=== PATIENT | female | born 1955 | race Caucasian/White ===

== ENCOUNTER 2018-08-09 15:34 | Outpatient (CLI) | payer BC ==
--- NOTE | 2018-09-08 11:39 | MMO ---
Bilateral MAMMO Bilat Screen DDI+BAYLEE. CLINICAL HISTORY: Patient is 62 years old and is seen for screening. The patient has no family history of breast cancer. The patient has no personal history of cancer. The patient has a history of left Stereotatic Biopsy at age 48 - benign. VIEWS: The views performed were: bilateral craniocaudal with tomosynthesis and bilateral mediolateral oblique with tomosynthesis. MAMMOGRAM FINDINGS: There are scattered fibroglandular densities. There is an area of architectural distortion seen in the outer region of the left breast. In the right breast, there are no suspicious masses, calcifications or areas of architectural distortion. IMPRESSION: AREA OF ARCHITECTURAL DISTORTION IN THE LEFT BREAST REQUIRES ADDITIONAL EVALUATION. RECOMMEND DIAGNOSTIC MAMMOGRAM. ULTRASOUND MAY ALSO PROVE USEFUL AT RECALL. THE RESULTS OF THIS EXAM WERE SENT TO THE PATIENT. ACR BI-RADS Category 0 - Incomplete: Need additional imaging evaluation. [facility] will notify the patient of the need for additional imaging services. MAMMOGRAPHY NOTE: 1. A negative mammogram report should not delay a biopsy if a dominant of clinically suspicious mass is present. 2. Approximately 10% to 15% of breast cancers are not detected by mammography. 3. Adenosis and dense breasts may obscure an underlying neoplasm.
== END 2018-08-09 15:35 | disposition home or self-care (01) ==
LOC: BICMAMMO 15:34
PROVIDERS: ATTEND Family Medicine
DX: Z12.31 Encounter for screening mammogram for malignant neoplasm of breast (principal); Q83.9 Congenital malformation of breast, unspecified
CPT/HCPCS: 77063; 77067

== ENCOUNTER 2018-09-14 12:41 | Outpatient (CLI) | payer BC ==
--- NOTE | 2018-09-14 14:53 | MMO ---
Left Breast MAMMO Unilat Diag DDI LT+BAYLEE. CLINICAL HISTORY: Patient is 62 years old and is seen for diagnostic exam. The patient has no family history of breast cancer. The patient has no personal history of cancer. The patient has a history of left Stereotatic Biopsy at age 48 - benign. VIEWS: The views performed were: . FILMS COMPARED: The present examination has been compared to prior imaging studies performed at [facility] on 08/09/2018 and 09/14/2018. MAMMOGRAM FINDINGS: There are scattered fibroglandular densities. Spiculated density in the left breast at 2:00 position persists on addl views and corresponds to a 5-6mm shadowing mass on US. IMPRESSION: AN ULTRASOUND-GUIDED BREAST BIOPSY IS RECOMMENDED. THE RESULTS OF THIS EXAM WERE SENT TO THE PATIENT. ACR BI-RADS Category 4 - Suspicious abnormality - biopsy should be considered MAMMOGRAPHY NOTE: 1. A negative mammogram report should not delay a biopsy if a dominant of clinically suspicious mass is present. 2. Approximately 10% to 15% of breast cancers are not detected by mammography. 3. Adenosis and dense breasts may obscure an underlying neoplasm.
--- NOTE | 2018-09-14 16:44 | ULT ---
LEFT BREAST ULTRASOUND: 09/14/18 HISTORY: Abnormal mammogram. FINDINGS: Correlation is made with mammograms of today and 08/09/18. Sonographic evaluation of the left upper outer breast demonstrates a small shadowing lesion 5 cm from the nipple at the 2 o'clock position corresponding to the mammographic findings. This measures abou t 5-6 mm. IMPRESSION: BI-RADS 4: Suspicious Abnormality - Biopsy Should Be Considered Further evaluation with ultrasound guided biopsy is recommended. Discussed in person with the patient at 2:45 p.m. POS: OFF
== END 2018-09-14 12:42 | disposition home or self-care (01) ==
LOC: BICMAMMO 12:41
PROVIDERS: ATTEND Family Medicine
DX: R92.2 Inconclusive mammogram (principal)
CPT/HCPCS: G0279

== ENCOUNTER → 2018-09-22 | Day surgery (SDC) | payer BC ==
--- NOTE | 2018-09-22 16:03 | MMO ---
Left Breast MAMMO Unilat Diag DDI LT. CLINICAL HISTORY: Patient is 62 years old and is seen for diagnostic exam. The patient has no family history of breast cancer. The patient has no personal history of cancer. The patient has a history of left Ultrasound Guided Core Biopsy in September, and left Stereotatic Biopsy at age 48 - benign. VIEWS: The views performed were: left craniocaudal and left mediolateral oblique. FILMS COMPARED: The present examination has been compared to prior imaging studies performed at [facility] on 05/23/2006, and at [facility] on 08/09/2018 and 09/14/2018. MAMMOGRAM FINDINGS: There are scattered fibroglandular densities. There is a new biopsy clip seen in the upper-outer region of the left breast. IMPRESSION: NEW BIOPSY CLIP IN THE LEFT BREAST IS CONFIRMED UTILIZING POST PROCEDURE MAMMOGRAM. THE RESULTS OF THIS EXAM WERE SENT TO THE PATIENT. MAMMOGRAPHY NOTE: 1. A negative mammogram report should not delay a biopsy if a dominant of clinically suspicious mass is present. 2. Approximately 10% to 15% of breast cancers are not detected by mammography. 3. Adenosis and dense breasts may obscure an underlying neoplasm.
--- NOTE | 2018-09-22 16:07 | ULT ---
Ultrasound-guided left breast biopsy CLINICAL HISTORY: Left breast mass, upper outer quadrant PROCEDURE: Informed consent was obtained. Patient was escorted to the procedural suite and placed in supine posi tion. The left breast was prepped and draped in standard sterile fashion and topical anesthesia with buffered 1% lidocaine was performed. A small skin incision was made through which a 14-gauge bio psy needle was advanced, and subsequently, 5 core specimens of the mass were acquired in place into a sealed formalin container. Biopsy needle was removed. Biopsy marking clip was advanced to and deplo aarond at site of biopsy. There were no procedural complications. She tolerated procedure well. Patient subsequent was transported to mammography to undergo clip place ment views. IMPRESSION: Technically successful ultrasound-guided left breast biopsy. Pathology results are pending, and the patient will be notified when they are received. Transcribed Date/Time: 09/22/2018 4:35 PM
== END ==
LOC: BICULT 12:35
PROVIDERS: ATTEND Family Medicine
PROC: 0HBU3ZX Excision of Left Breast, Percutaneous Approach, Diagnostic (ICD-10-PCS; principal; 2018-09-22)
DX: C50.212 Malignant neoplasm of upper-inner quadrant of left female breast (principal)
CPT/HCPCS: 19083; 88305; 88341; 88342

== ENCOUNTER 2018-10-03 06:48 | Day surgery (SDC) | payer BC ==
[2018-09-29 08:47] VITALS: BMI 39.9
--- NOTE | 2018-10-03 09:54 | NM ---
EXAM: NM Lymphoscintigraphy left breast PROVIDED CLINICAL HISTORY: History COMPARISON: None FINDINGS: Approximately 400 uCi of technetium 99m sulfur colloid was administered in a periareolar location in 4 separate aliquots subcutaneously and intradermally in the left breast. Anterior and lateral images were obtained after injection. There is a single focus of increased uptake seen overlying the left axilla likely corresponding to a sentinel lymph node. IMPRESSION: Single focus of activity overlying the left axilla likely corresponding to sentinel lymph node. Gabriella andrea was transported to surgery for further care.
[2018-10-03] MEDS ORDERED: Ketorolac Tromethamine 30 MG/ML VIAL ONE (10:07)
[2018-10-03] MEDS ORDERED: Isosulfan Blue 50 MG/5 ML VIAL ONE (10:08)
[2018-10-03] MEDS ORDERED: Bupivacaine/Epinephrine 0.25% 30 ML VIAL ONE ×2 (10:08→12:04)
[2018-10-03] MEDS ORDERED: Midazolam HCl 2 mg/2 ml Vial ONE (10:48)
[2018-10-03] MEDS ORDERED: Fentanyl 100 MCG/2 ML VIAL ONE (10:58)
--- NOTE | 2018-10-03 12:38 | ULT ---
LIMITED ULTRASOUND LEFT BREAST: 10/03/18 HISTORY: Patient with left breast mass 2 o'clock position post biopsy and biopsy marker clip placement. Needle and wire localization of the mass was requested. COMPARISON: Ultrasound examination on 09/14/18. FINDINGS/IMPRESSION: Imaging of the left breast at the 2 o'clock position does not redemonstrate the previously noted irre gular mass with angulated margins at the 2 o'clock position. There is suggested area of architectura l distortion in this region, but the mass cannot be reliably visualized for needle and wire localizat ion. As a result, the patient was transported to Mammography for a mammographically guided needle and wire localization of the biopsy marker clip. Please see that study for further details. POS: JONATHON
[2018-10-03] MEDS ORDERED: PROPOFOL 200 MG/20 ML VIAL ONE (14:27)
[2018-10-03] MEDS ORDERED: Lidocaine 1% PF 5 ML VIAL ONE (14:27)
[2018-10-03] MEDS ORDERED: Metoclopramide HCl 10 MG/2 ML VIAL ONE (14:27)
[2018-10-03] MEDS ORDERED: Dexamethasone 20 MG/5 ML VIAL ONE (14:27)
[2018-10-03] MEDS ORDERED: Rocuronium Bromide 10 MG/ML (10ML VIAL) ONE (14:27)
[2018-10-03] MEDS ORDERED: Glycopyrrolate 0.2 MG/ML 5 ML SYRINGE ONE (14:27)
[2018-10-03] MEDS ORDERED: Ondansetron PF 4 MG/2 ML Vial ONE (14:27)
--- NOTE | 2018-10-03 18:49 | MMO ---
NEEDLE AND WIRE LOCALIZATION LEFT BREAST BIOPSY MARKER CLIP AND AREA OF ARCHITECTURAL DISTORTION 10/03/18 TECHNIQUE: After informed consent was obtained, limited ultrasound of the left breast was performed. However, th e previously seen irregular mass noted on prior ultrasound exam on 09/14/18 is not well visualized on the current ultrasound exam. As the result, needle and wire localization was performed by mammographi c guidance. A lateral medial projection of the left breast was performed with grid localizer in place . The biopsy marker clip in area of distortion left breast were marked, and the area was meticulousl y prepped in the usual fashion. Skin and subcutaneous tissues were infiltrated with buffered 1% lidoc deirdre for local anesthesia. A 7.5 cm [place] localization needle was advanced and a CC projection was obtained demonstrating that t he needle traverses the region of the area of suggested architectural distortion and the biopsy briseyda er clip. Architectural distortion is slightly more lateral compared to the biopsy marker clip. The wi re was deployed and final imaging was performed. Dry sterile dressing was placed. Patient tolerated the procedure well without immediate complication. IMPRESSION: Technically successful needle and wire localization of left breast biopsy marker clip and suggested a riaz of architectural distortion within the outer left breast. POS: [facility]
--- NOTE | 2018-10-03 18:51 | MMO ---
LEFT BREAST SPECIMEN MAMMOGRAM: 10/03/18 HISTORY: Mass left breast. Patient is post needle and wire localization of biopsy maker clip and area of archi tectural distortion. FINDINGS/IMPRESSION: Single specimen mammogram is submitted for interpretation. Specimen contains the [place] localization wire as well as biopsy marker clip. In addition, there is what appears to be a spiculated mass within a portion of the specimen likely corresponding to the area of distortion in the left breast just lat eral to the biopsy marker clip. These findings were relayed to Dr. Huston in the Operating Room by Neema Salgado. POS: JONATHON
--- NOTE | 2018-10-04 08:46 | OP ---
DATE OF PROCEDURE: 10/03/2018 PREOPERATIVE DIAGNOSIS: Left breast cancer. POSTOPERATIVE DIAGNOSIS: Left breast cancer. PROCEDURES PERFORMED: Left breast needle localized lumpectomy, sentinel lymph node biopsy. ANESTHESIA: General endotracheal. INDICATIONS: The patient is a 62-year-old white female. She has biopsy-proven left breast cancer. After discussing the options with her, she was taken to the operating room at this time for breast conservation surgery. Prior to coming to the operating room, she had needle localization performed mammographically by Dr. Garcia and I reviewed these x-rays with him. She also had lymphoscintigraphy performed revealing sentinel lymph nodes within the left axilla. DESCRIPTION OF OPERATION: Informed consent was obtained. The patient was taken to the operating room, where general endotracheal anesthesia was obtained with the patient in the supine position. Left breast was infiltrated with 3 mL of Lymphazurin in the periareolar subdermal tissue and massaged for 5 minutes. Left breast and axilla were then prepped with ChloraPrep and draped in sterile fashion. Attention was turned first to the axilla. Local anesthetic was infiltrated using 0.25% Marcaine with epinephrine and a low transverse axillary incision was created. Dissection was carried through skin and subcutaneous tissue. Superficial axillary fascia was incised. The Neoprobe was utilized to identify areas of maximum radio intensity. There was one single dominant lymph node that had bright blue lymphatic drainage into this as well as high counts. Ex vivo, the counts, were in excess of 250. This node was removed by clamping and dividing all investing tissue. I was then able to identify second lymph node with much lower counts (only in the neighborhood of about 25). There were no other areas of any radioactivity higher than 5 or 6 within the axilla. The second lymph node was removed in a similar fashion to the first and both were passed off the field for permanent evaluation. Meticulous hemostasis was obtained within the wound. The superficial fascia was closed with a running suture of 3-0 Vicryl. Skin edges approximated with 4-0 Monocryl subcuticular suture. Dermabond placed externally. Additional local anesthetic was infiltrated during the course of closure. Attention was turned to the left breast. The needle localization had been performed in a lateral to medial fashion. It entered the breast obliquely in an ascending fashion. I identified both the clip and an area of architectural abnormality relative to the needle. I then performed intraoperative ultrasound to identify the area of architectural irregularity that I could see in my office. This appeared to be consistent with area of irregularity that could be seen on mammography. This was marked relative to the wire and the clip. Additional local anesthetic was infiltrated and an incision was created from the needle entry site medially, in an ascending fashion. Dissection was carried through skin and subcutaneous tissue. Flaps were raised superiorly, medially, and inferiorly. Dissection was then carried out along the lateral aspect of the localizing needle and carried deeply into the breast. Then, utilizing the flaps that already been dissected, the specimen was widely dissected around the wire. Specimen was removed intact. Sutures were placed for orientation and the specimen was submitted for specimen mammography. This revealed the clip and area of architectural irregularity were present within the specimen. Specimen was submitted to pathology. Meticulous hemostasis was obtained. The wound was closed in layers with 3-0 and 4-0 Monocryl. Additional local anesthetic was infiltrated into the wound during closure. There were no complications. The patient tolerated the procedure well and was taken to recovery room in stable condition. Job ID: [id number]
== END 2018-10-03 14:45 | disposition home or self-care (01) ==
LOC: SDC 06:48
PROVIDERS: ATTEND Specialist
PROC: 0HBU0ZZ Excision of Left Breast, Open Approach (ICD-10-PCS; principal; 2018-10-03)
PROC: 07B60ZX Excision of Left Axillary Lymphatic, Open Approach, Diagnostic (ICD-10-PCS; principal; 2018-10-03)
DX: C50.412 Malignant neoplasm of upper-outer quadrant of left female breast (principal); I10 Essential (primary) hypertension; M19.90 Unspecified osteoarthritis, unspecified site; J30.9 Allergic rhinitis, unspecified; Z17.0 Estrogen receptor positive status [ER+]; Z79.899 Other long term (current) drug therapy; Z88.2 Allergy status to sulfonamides; Z88.8 Allergy status to other drugs, medicaments and biological substances; Z97.4 Presence of external hearing-aid
CPT/HCPCS: 19281; 76098; 78195; 88307; 88341; 88342; A9541; J0131; J0690; J1100; J1885; J2001; J2250; J2405; J2704; J2765; J3010; Q9968

== ENCOUNTER 2019-01-19 13:07 | Outpatient (CLI) | payer BC ==
--- NOTE | 2019-01-19 13:57 | BD ---
DEXA BONE DENISITY EXAM: HISTORY: A 63-year-old postmenopausal female for screening. FINDINGS: Lumbar Spine: BMD (g/cm2) L1 1.313 T-Score: 2.9 L2 1.290 T-Score: 2.4 L3 1.417 T-Score: 3.0 L4 1.403 T-Score: 3.1 L1-L4 1.358 T-Score: 2.8 Femoral Neck: 0.787 T-Score: -0.6 Total Femur: 1.029 T-Score: 0.7 Impression: Normal bone mineral density. POS: [facility]
== END 2019-01-19 13:08 | disposition home or self-care (01) ==
LOC: BICMAMMO 13:07
PROVIDERS: ATTEND Internal Medicine Hematology & Oncology
DX: Z13.820 Encounter for screening for osteoporosis (principal); C50.919 Malignant neoplasm of unspecified site of unspecified female breast; T38.6X5A Adverse effect of antigonadotrophins, antiestrogens, antiandrogens, not elsewhere classified, initial encounter
CPT/HCPCS: 77080

== ENCOUNTER 2019-09-24 08:17 | Outpatient (CLI) | payer BC ==
--- NOTE | 2019-09-24 08:47 | MMO ---
Bilateral MAMMO Bilat Diag DDI+BAYLEE. CLINICAL HISTORY: Patient is 63 years old and is seen for diagnostic exam. The patient has no family history of breast cancer. The patient has a history of lumpectomy procedure revealed invasive ductal left breast carcinoma in September,. The patient has a history of left Ultrasound Guided Core Biopsy in September, - malignant and left Stereotatic Biopsy at age 48 - benign. VIEWS: The views performed were: bilateral craniocaudal with tomosynthesis; bilateral mediolateral oblique with tomosynthesis; and bilateral mediolateral with tomosynthesis. FILMS COMPARED: The present examination has been compared to prior imaging studies performed at [facility] on 09/14/2018, 09/22/2018 and 10/03/2018. This study has been interpreted with the assistance of computer-aided detection. MAMMOGRAM FINDINGS: There are scattered fibroglandular densities. There are post operative changes seen in the upper-outer region of the left breast. There are no suspicious masses, suspicious calcifications, or new areas of architectural distortion. IMPRESSION: THERE IS NO MAMMOGRAPHIC EVIDENCE OF MALIGNANCY. A ROUTINE FOLLOW-UP MAMMOGRAM IN 1 YEAR IS RECOMMENDED. THE RESULTS OF THIS EXAM WERE SENT TO THE PATIENT. ACR BI-RADS Category 2 - Benign finding MAMMOGRAPHY NOTE: 1. A negative mammogram report should not delay a biopsy if a dominant of clinically suspicious mass is present. 2. Approximately 10% to 15% of breast cancers are not detected by mammography. 3. Adenosis and dense breasts may obscure an underlying neoplasm. Reported by: REAGAN VARGAS MD Electonically Signed: [id number]
== END 2019-09-24 08:18 | disposition home or self-care (01) ==
LOC: BICMAMMO 08:17
PROVIDERS: ATTEND Specialist
DX: Z08 Encounter for follow-up examination after completed treatment for malignant neoplasm (principal); Z85.3 Personal history of malignant neoplasm of breast
CPT/HCPCS: 77066; G0279

== ENCOUNTER 2020-01-28 07:43 | Outpatient (CLI) | payer BC ==
--- NOTE | 2020-01-28 09:10 | BD ---
EXAM: DEXA bone density examination HISTORY: 64-year-old postmenopausal female for screening COMPARISON: None FINDINGS: L1--bone mineral density 1.190 g/sq cm; T score 1.8 L2--bone mineral density 1.304 g/sq cm; T score 2.5 L3--bone mineral density 1.395 g/sq cm; T score 2.8 L4--bone mineral density 1.509 g/sq cm; T score 4.1 Total L1-L4--bone mineral density 1.362 g/sq cm; T score 2.9 Left femoral neck--bone mineral density0.703; T score -1.3 Total proximal left femur--bone mineral density 1.106; T score 1.3 WHO classification: Osteopenia 10 year fracture risk Major osteoporotic fracture: 8.4% Hip fracture: 0.8% IMPRESSION: Osteopenia with elevated fracture risk as above.
== END 2020-01-28 07:44 | disposition home or self-care (01) ==
LOC: BICMAMMO 07:43
PROVIDERS: ATTEND Internal Medicine Hematology & Oncology
DX: Z13.820 Encounter for screening for osteoporosis (principal); N95.8 Other specified menopausal and perimenopausal disorders; M85.852 Other specified disorders of bone density and structure, left thigh
CPT/HCPCS: 77080

== ENCOUNTER 2020-09-25 09:20 | Outpatient (CLI) | payer MEDICARE | END 2020-09-25 09:21 | disposition home or self-care (01) | LOC: BICMAMMO 09:20 | PROVIDERS: ATTEND Specialist | DX: Z08 Encounter for follow-up examination after completed treatment for malignant neoplasm (principal); Z85.3 Personal history of malignant neoplasm of breast | CPT/HCPCS: 77066; G0279 ==

== ENCOUNTER 2021-03-09 08:17 | Outpatient (CLI) | payer MEDICARE | END 2021-03-09 08:18 | disposition home or self-care (01) | LOC: BICMAMMO 08:17 | PROVIDERS: ATTEND Internal Medicine Hematology & Oncology | DX: M85.852 Other specified disorders of bone density and structure, left thigh (principal) | CPT/HCPCS: 77080 ==

== ENCOUNTER 2021-09-11 05:30 | Emergency (ER) | payer MEDICARE ==
[2021-09-11] MEDS ORDERED: Ondansetron PF 4 MG/2 ML Vial ONE (06:11)
[2021-09-11] MEDS ORDERED: Morphine 4 MG/ML VIAL ONE (06:11)
[2021-09-11 06:23] LABS: #Basophils 0.1 thou/uL (0.0-0.2); #Eosinphils 0.1 thou/uL (0.0-0.7); #Lymphocytes 1.5 thou/uL (1.20-3.40); #Monocytes 0.8 thou/uL (0.11-0.59); #Neutrophils 10.1 thou/uL (1.40-6.50); %Basophils 0.4 % (0.0-1.0); %Eosinophils 0.5 % (0.0-10.0); %Lymphocytes 12.1 % (21.0-51.0); Hemoglobin 14.4 g/dL (12.0-16.0); Mean Corpuscular HGB CONC 31.2 g/dL (32.0-36.0); Mean Corpuscular Volume 86.4 fL (78.0-98.0); Mean Platelet Volume 6.7 fL (7.4-10.4); Platelet Count 321 thou/uL (130-400); RBC Distribution Width 13.7 % (11.5-14.5); Red Blood Cell (RBC) Count 5.34 mill/uL (4.20-5.40); White Blood Cell (WBC) Count 12.5 thou/uL (4.8-10.8)
[2021-09-11 06:47] LABS: Bacteria/HPF None Seen HPF (None Seen); Bilirubin Negative (Negative); Blood, Urine 2+ (Negative); Clarity Clear (Clear); Glucose, Urine (Dipstick) Normal (Negative); Ketone, Urine 40 mg/dL (Negative); Leukocyte 250 Leu/uL (Negative); Nitrite Negative (Negative); Protein, Urine (Dipstick) 30 mg/dL (Neg-Trace); Specific Gravity, Urine 1.028 (1.002-1.036); Squamous Epithelial 0-3 HPF (0-3); Urobilinogen Normal mg/dL (Less than 2); pH, Urine 5.5 (5.0-9.0)
[2021-09-11 07:26] LABS: ALT (SGPT) 9 U/L (8-55); AST (SGOT) 9 U/L (5-34); Alkaline Phosphatase 95 U/L (40-110); Anion Gap 16 mmol/L (10-20); BUN (Urea Nitrogen) 22 mg/dL (9.8-20.1); Bilirubin, Total 0.4 mg/dL (0.2-1.2); Calc. Creatinine Clearance 0 mL/min (70-130); Calcium 9.6 mg/dL (7.8-10.44); Carbon Dioxide 22 mmol/L (23-31); Chloride 100 mmol/L (98-107); Globulin 3.9 g/dL (2.4-3.5); Glucose 85 mg/dL (80-115); Lipase 25 U/L (8-78); Potassium 3.8 mmol/L (3.5-5.1); Protein, Total 7.9 g/dL (5.8-8.1); Sodium 134 mmol/L (136-145)
[2021-09-11] MEDS ORDERED: Iopamidol-370 76% 500 ML 1 ML ONE (15:58)
== END 2021-09-11 08:49 | disposition home or self-care (01) ==
LOC: ERS 05:30
DX: N39.0 Urinary tract infection, site not specified (principal); N83.9 Noninflammatory disorder of ovary, fallopian tube and broad ligament, unspecified; R93.89 Abnormal findings on diagnostic imaging of other specified body structures; I10 Essential (primary) hypertension; Z85.3 Personal history of malignant neoplasm of breast; Z79.899 Other long term (current) drug therapy
CPT/HCPCS: 36415; 74177; 80053; 81003; 81015; 83690; 85025; 93005; 96374; 96375; J2270; J2405

== ENCOUNTER 2021-10-05 08:37 | Outpatient (CLI) | payer MEDICARE | END 2021-10-05 08:38 | disposition home or self-care (01) | LOC: BICMAMMO 08:37 | PROVIDERS: ATTEND Specialist | DX: Z12.31 Encounter for screening mammogram for malignant neoplasm of breast (principal); Z85.41 Personal history of malignant neoplasm of cervix uteri; Z85.3 Personal history of malignant neoplasm of breast; Z91.89 Other specified personal risk factors, not elsewhere classified | CPT/HCPCS: 77063; 77067 ==

== ENCOUNTER 2021-11-30 12:23 | Outpatient (CLI) | payer MEDICARE | END 2021-11-30 12:24 | disposition home or self-care (01) | LOC: LABBT 12:23 | PROVIDERS: ATTEND Specialist | DX: Z20.822 Contact with and (suspected) exposure to COVID-19 (principal) | CPT/HCPCS: 87811 ==

== ENCOUNTER 2021-12-03 07:35 | Day surgery (SDC) | payer MEDICARE ==
[2021-12-02 09:17] VITALS: BMI 38.7
[2021-12-03] MEDS ORDERED: Acetaminophen 500 MG TAB ONE (08:05)
[2021-12-03] MEDS ORDERED: Ketorolac Tromethamine 30 MG/ML VIAL ONE (08:05)
[2021-12-03] MEDS ORDERED: Lidocaine 1% PF 5 ML VIAL ONE ×2 (11:41→12:07)
[2021-12-03] MEDS ORDERED: Bupivacaine/Epinephrine 0.25% 30 ML VIAL ONE (11:42)
[2021-12-03] MEDS ORDERED: Dexmedetomidine 200 MCG/2 ML VIAL ONE (11:47)
[2021-12-03] MEDS ORDERED: fentaNYL Citrate/PF 100 MCG/2 ML SYRINGE ONE (11:47)
[2021-12-03] MEDS ORDERED: Midazolam HCl 2 mg/2 ml Vial ONE (11:47)
[2021-12-03] MEDS ORDERED: Propofol 500 MG/50 ML VIAL ONE (11:52)
[2021-12-03] MEDS ORDERED: CEFAZOLIN 2 GM VIAL ONE (11:54)
[2021-12-03] MEDS ORDERED: Sodium Chloride 0.9% 100 ML ONE (11:54)
== END 2021-12-03 13:43 | disposition home or self-care (01) ==
LOC: SDC 07:35
PROVIDERS: ATTEND Specialist
PROC: 0JH60WZ Insertion of Totally Implantable Vascular Access Device into Chest Subcutaneous Tissue and Fascia, Open Approach (ICD-10-PCS; principal; 2021-12-03)
PROC: 02HV33Z Insertion of Infusion Device into Superior Vena Cava, Percutaneous Approach (ICD-10-PCS; 2021-12-03)
DX: C54.1 Malignant neoplasm of endometrium (principal); E66.01 Morbid (severe) obesity due to excess calories; Z68.38 Body mass index [BMI] 38.0-38.9, adult; Z85.3 Personal history of malignant neoplasm of breast; Z79.811 Long term (current) use of aromatase inhibitors; Z79.899 Other long term (current) drug therapy; Z88.2 Allergy status to sulfonamides; Z88.8 Allergy status to other drugs, medicaments and biological substances
CPT/HCPCS: 36561; 71045; C1788; J0690; J1642; J1885; J2250; J2704; J3490

== ENCOUNTER 2022-05-06 08:16 | Outpatient (CLI) | payer MEDICARE ==
[2022-05-06] MEDS ORDERED: Iopamidol-370 76% 500 ML 1 ML ONE (15:03)
== END 2022-05-06 08:17 | disposition home or self-care (01) ==
LOC: BICCT 08:16
PROVIDERS: ATTEND Internal Medicine Hematology & Oncology
DX: C53.8 Malignant neoplasm of overlapping sites of cervix uteri (principal); N20.0 Calculus of kidney; Z98.890 Other specified postprocedural states
CPT/HCPCS: 74177; 82565

== ENCOUNTER 2022-05-14 08:37 | Outpatient (CLI) | payer MEDICARE | END 2022-05-14 08:38 | disposition home or self-care (01) | LOC: BICMAMMO 08:37 | PROVIDERS: ATTEND Internal Medicine Hematology & Oncology | DX: M85.852 Other specified disorders of bone density and structure, left thigh (principal); C50.412 Malignant neoplasm of upper-outer quadrant of left female breast | CPT/HCPCS: 77080 ==

== ENCOUNTER 2022-12-14 08:37 | Outpatient (CLI) | payer MEDICARE ==
[2022-12-14] MEDS ORDERED: Iopamidol-370 76% 500 ML MDV (1 ML CHARGE) ONE (09:19)
== END 2022-12-14 08:38 | disposition home or self-care (01) ==
LOC: BICCT 08:37
PROVIDERS: ATTEND Internal Medicine Hematology & Oncology
DX: C53.8 Malignant neoplasm of overlapping sites of cervix uteri (principal); C50.412 Malignant neoplasm of upper-outer quadrant of left female breast
CPT/HCPCS: 74177; 82565; Q9967

== ENCOUNTER 2023-05-28 13:55 | Emergency (ER) | payer MEDICARE ==
[2023-05-28] MEDS ORDERED: Ketorolac Tromethamine 30 MG (1 mL) VIAL ONE (14:10)
[2023-05-28] MEDS ORDERED: Ondansetron PF 4 MG/2 ML Vial ONE (14:11)
[2023-05-28] MEDS ORDERED: Morphine 2 MG/ML VIAL ONE (14:11)
[2023-05-28 15:02] LABS: Bacteria/HPF None Seen HPF (None Seen); Bilirubin Negative (Negative); Blood, Urine 1+ (Negative); CAUTI Indications for Culture Pelvic or flank pain; Clarity Clear (Clear); Glucose, Urine (Dipstick) Normal (Negative); Ketone, Urine Negative (Negative); Leukocyte Negative Leu/uL (Negative); Nitrite Negative (Negative); Protein, Urine (Dipstick) 10 mg/dL (Neg-Trace); Specific Gravity, Urine 1.026 (1.002-1.036); Squamous Epithelial 0-3 HPF (0-3); Urobilinogen Normal mg/dL (Less than 2); WBC/HPF 0-3 HPF (0-3)
[2023-05-28 15:04] LABS: Urine Culture Reflex No No
[2023-05-28 15:37] LABS: #Monocytes 0.3 thou/uL (0.11-0.59); #Neutrophils 9.8 thou/uL (1.40-6.50); %Basophils 0.3 % (0.0-1.0); %Eosinophils 0.2 % (0.0-10.0); %Lymphocytes 10.5 % (21.0-51.0); %Neutrophils 85.6 % (42.0-75.0); Hematocrit 45.4 % (36.0-47.0); Hemoglobin 13.8 g/dL (12.0-16.0); Mean Corpuscular HGB CONC 30.4 g/dL (32.0-36.0); Mean Corpuscular Volume 88.7 fl (78.0-98.0); Mean Platelet Volume 9.1 fL (7.4-10.4); Platelet Count 249 10x3/uL (130-400); RBC Distribution Width 15.1 % (11.5-14.5); Red Blood Cell (RBC) Count 5.12 mill/uL (4.20-5.40); White Blood Cell (WBC) Count 11.4 10x3/uL (4.8-10.8)
[2023-05-28 15:58] LABS: ALT (SGPT) 13 U/L (8-55); AST (SGOT) 13 U/L (5-34); Albumin 4.2 g/dL (3.4-4.8); Alkaline Phosphatase 112 U/L (40-110); Anion Gap 15 mmol/L (10-20); BUN (Urea Nitrogen) 23 mg/dL (9.8-20.1); Bilirubin, Total 0.2 mg/dL (0.2-1.2); Calc. Creatinine Clearance 0 mL/min (70-130); Calcium 9.3 mg/dL (7.8-10.44); Carbon Dioxide 19 mmol/L (23-31); Chloride 106 mmol/L (98-107); Estimated GFR 66; Globulin 3.7 g/dL (2.4-3.5); Glucose 110 mg/dL (80-115); Lipase 37 U/L (8-78); Potassium 4.2 mmol/L (3.5-5.1); Protein, Total 7.9 g/dL (5.8-8.1); Sodium 136 mmol/L (136-145)
== END 2023-05-28 16:39 | disposition home or self-care (01) ==
LOC: ERS 13:55
DX: N13.2 Hydronephrosis with renal and ureteral calculous obstruction (principal); I10 Essential (primary) hypertension
CPT/HCPCS: 36415; 74176; 80053; 81001; 83690; 85025; 96361; 96374; 96375; J1885; J2272; J2405

== ENCOUNTER 2023-05-29 17:11 | Emergency (ER) | payer MEDICARE ==
[2023-05-29] MEDS ORDERED: Ondansetron PF 4 MG/2 ML Vial ONE (17:55)
[2023-05-29] MEDS ORDERED: Ketorolac Tromethamine 30 MG (1 mL) VIAL ONE (17:55)
[2023-05-29 18:06] LABS: #Monocytes 0.6 thou/uL (0.11-0.59); #Neutrophils 10.1 thou/uL (1.40-6.50); %Basophils 0.3 % (0.0-1.0); %Eosinophils 0.1 % (0.0-10.0); %Lymphocytes 8.8 % (21.0-51.0); %Neutrophils 85.3 % (42.0-75.0); Hematocrit 39.6 % (36.0-47.0); Hemoglobin 12.7 g/dL (12.0-16.0); Mean Corpuscular HGB CONC 32.1 g/dL (32.0-36.0); Mean Corpuscular Hemoglobin 27.6 pg (27.0-31.0); Mean Corpuscular Volume 86.1 fl (78.0-98.0); Mean Platelet Volume 8.9 fL (7.4-10.4); Platelet Count 252 10x3/uL (130-400); White Blood Cell (WBC) Count 11.9 10x3/uL (4.8-10.8)
[2023-05-29 18:29] LABS: Bacteria/HPF None Seen HPF (None Seen); Bilirubin Negative (Negative); Blood, Urine 2+ (Negative); CAUTI Indications for Culture Pelvic or flank pain; Clarity Clear (Clear); Glucose, Urine (Dipstick) Normal (Negative); Ketone, Urine Trace mg/dL (Negative); Leukocyte Negative Leu/uL (Negative); Nitrite Negative (Negative); Protein, Urine (Dipstick) 10 mg/dL (Neg-Trace); Specific Gravity, Urine 1.025 (1.002-1.036); Squamous Epithelial 0-3 HPF (0-3); Urobilinogen Normal mg/dL (Less than 2); WBC/HPF 0-3 HPF (0-3)
[2023-05-29 18:30] LABS: Urine Culture Reflex No No
[2023-05-29 18:43] LABS: ALT (SGPT) 11 U/L (8-55); AST (SGOT) 12 U/L (5-34); Albumin 4.1 g/dL (3.4-4.8); Alkaline Phosphatase 102 U/L (40-110); Anion Gap 15 mmol/L (10-20); BUN (Urea Nitrogen) 28 mg/dL (9.8-20.1); Bilirubin, Total 0.4 mg/dL (0.2-1.2); Calc. Creatinine Clearance 0 mL/min (70-130); Calcium 9.2 mg/dL (7.8-10.44); Carbon Dioxide 21 mmol/L (23-31); Chloride 103 mmol/L (98-107); Estimated GFR 34; Globulin 3.3 g/dL (2.4-3.5); Glucose 123 mg/dL (80-115); Potassium 4.3 mmol/L (3.5-5.1); Protein, Total 7.4 g/dL (5.8-8.1); Sodium 135 mmol/L (136-145)
== END 2023-05-29 19:05 | disposition home or self-care (01) ==
LOC: ERS 17:11
DX: N23 Unspecified renal colic (principal); I10 Essential (primary) hypertension
CPT/HCPCS: 80053; 81001; 85025; 96374; 96375; J1885; J2405

== ENCOUNTER 2023-05-30 17:01 | Observation (INO) | payer MEDICARE ==
[2023-05-30 19:55] LABS: Bacteria/HPF None Seen HPF (None Seen); Bilirubin Negative (Negative); Blood, Urine 2+ (Negative); CAUTI Indications for Culture Pelvic or flank pain; Clarity Clear (Clear); Glucose, Urine (Dipstick) Normal (Negative); Ketone, Urine Trace mg/dL (Negative); Leukocyte Negative Leu/uL (Negative); Nitrite Negative (Negative); Protein, Urine (Dipstick) Negative (Neg-Trace); RBC/HPF 0-3 HPF (0-3); Specific Gravity, Urine 1.008 (1.002-1.036); Squamous Epithelial None Seen HPF (0-3); Urobilinogen Normal mg/dL (Less than 2); WBC/HPF 0-3 HPF (0-3)
[2023-05-30 19:58] LABS: Urine Culture Reflex No No
[2023-05-30 20:05] LABS: #Monocytes 0.6 thou/uL (0.11-0.59); #Neutrophils 11.4 thou/uL (1.40-6.50); %Basophils 0.2 % (0.0-1.0); %Lymphocytes 6.3 % (21.0-51.0); Hematocrit 37.8 % (36.0-47.0); Hemoglobin 12.2 g/dL (12.0-16.0); Mean Corpuscular HGB CONC 32.3 g/dL (32.0-36.0); Mean Corpuscular Hemoglobin 27.3 pg (27.0-31.0); Mean Corpuscular Volume 84.6 fl (78.0-98.0); Mean Platelet Volume 8.7 fL (7.4-10.4); Platelet Count 219 10x3/uL (130-400); RBC Distribution Width 14.7 % (11.5-14.5); Red Blood Cell (RBC) Count 4.47 mill/uL (4.20-5.40); White Blood Cell (WBC) Count 12.9 10x3/uL (4.8-10.8)
[2023-05-30 20:26] LABS: ALT (SGPT) 11 U/L (8-55); AST (SGOT) 14 U/L (5-34); Albumin 3.9 g/dL (3.4-4.8); Alkaline Phosphatase 97 U/L (40-110); Anion Gap 13 mmol/L (10-20); BUN (Urea Nitrogen) 18 mg/dL (9.8-20.1); Bilirubin, Total 0.8 mg/dL (0.2-1.2); Calc. Creatinine Clearance 0 mL/min (70-130); Carbon Dioxide 21 mmol/L (23-31); Chloride 96 mmol/L (98-107); Estimated GFR 39; Globulin 3.4 g/dL (2.4-3.5); Glucose 124 mg/dL (80-115); Potassium 4.4 mmol/L (3.5-5.1); Protein, Total 7.3 g/dL (5.8-8.1); Sodium 126 mmol/L (136-145)
[2023-05-30] MEDS ORDERED: Ketorolac Tromethamine 30 MG (1 mL) VIAL ONE (20:37)
[2023-05-30] MEDS ORDERED: Morphine 2 MG/ML VIAL SLOW IVP PRN (23:07)
[2023-05-30] MEDS ORDERED: Acetaminophen 325 MG TAB PO PRN (23:47)
[2023-05-30] MEDS ORDERED: Ondansetron ODT 4 MG TAB PO PRN (23:47)
[2023-05-31] MEDS ORDERED: Tamsulosin HCl 0.4 MG CAP ONE (00:22)
[2023-05-31] MEDS: Tamsulosin HCl 0.4 MG CAP PO SCH (00:29)
[2023-05-31 00:31] VITALS: BMI 43.2
[2023-05-31] MEDS: Lactated Ringer's 500 ML IV SCH (00:38)
[2023-05-31] MEDS ORDERED: Ketorolac Tromethamine 30 MG (1 mL) VIAL IVP PRN (01:00)
[2023-05-31 07:21] VITALS: BP 130/75; TEMP 98
[2023-05-31 07:45] LABS: Anion Gap 11 mmol/L (10-20); BUN (Urea Nitrogen) 14 mg/dL (9.8-20.1); Calc. Creatinine Clearance 95 mL/min (70-130); Carbon Dioxide 26 mmol/L (23-31); Chloride 103 mmol/L (98-107); Estimated GFR 58; Glucose 90 mg/dL (80-115); Potassium 4.1 mmol/L (3.5-5.1); Sodium 136 mmol/L (136-145)
[2023-05-31] MEDS ORDERED: Famotidine 20 MG TAB ONE (08:28)
[2023-05-31] MEDS: Famotidine 20 MG TAB PO SCH (08:32)
== END 2023-05-31 10:55 | disposition home or self-care (01) ==
LOC: ERS 17:01 → ERHOLD 23:14
PROVIDERS: ADMIT Student in an Organized Health Care Education/Training Program; ATTEND Family Medicine
DX: N20.2 Calculus of kidney with calculus of ureter (principal); I10 Essential (primary) hypertension; E87.1 Hypo-osmolality and hyponatremia; N17.9 Acute kidney failure, unspecified; Z91.041 Radiographic dye allergy status; Z88.2 Allergy status to sulfonamides; Z79.899 Other long term (current) drug therapy; Z90.710 Acquired absence of both cervix and uterus
CPT/HCPCS: 74176; 80048; 80053; 81001; 82365; 85025; 96361; 96374; 99285; G0378 ×2; 36415; 88300; J1885; J7120

== ENCOUNTER 2023-06-02 08:48 | Outpatient (CLI) | payer MEDICARE | END 2023-06-02 08:49 | disposition home or self-care (01) | LOC: BICMAMMO 08:48 | PROVIDERS: ATTEND Internal Medicine Hematology & Oncology | DX: M85.851 Other specified disorders of bone density and structure, right thigh (principal); M85.852 Other specified disorders of bone density and structure, left thigh; C50.412 Malignant neoplasm of upper-outer quadrant of left female breast; T38.6X5A Adverse effect of antigonadotrophins, antiestrogens, antiandrogens, not elsewhere classified, initial encounter | CPT/HCPCS: 77080 ==

== ENCOUNTER 2023-10-13 07:59 | Outpatient (CLI) | payer MEDICARE | END 2023-10-13 08:00 | disposition home or self-care (01) | LOC: BICMAMMO 07:59 | PROVIDERS: ATTEND Specialist | DX: Z12.31 Encounter for screening mammogram for malignant neoplasm of breast (principal); Z85.3 Personal history of malignant neoplasm of breast; Z91.89 Other specified personal risk factors, not elsewhere classified; Z85.42 Personal history of malignant neoplasm of other parts of uterus | CPT/HCPCS: 77063; 77067 ==